=== PATIENT | female | born 1930 | race Caucasian/White ===

== ENCOUNTER 2018-02-18 15:41 | Emergency (ER) | payer MEDICARE | END 2018-02-18 17:47 | disposition home or self-care (01) | LOC: E/R 15:41 | DX: S00.03XA Contusion of scalp, initial encounter (principal); I10 Essential (primary) hypertension; W07.XXXA Fall from chair, initial encounter; Y92.9 Unspecified place or not applicable | CPT/HCPCS: 70450; 72125; 99285-25 ==